=== PATIENT | male | born 1960 | race Hispanic/Latino ===

== ENCOUNTER 2019-01-03 12:42 | Emergency (ER) | payer SELFPAY ==
[2019-01-03] MEDS ORDERED: Ketorolac Tromethamine 30 MG/ML VIAL ONE (13:12)
[2019-01-03] MEDS ORDERED: Ibuprofen 800 MG TAB ONE (13:17)
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
== END 2019-01-03 15:14 | disposition home or self-care (01) ==
LOC: NAV ERS 12:42
DX: M54.2 Cervicalgia (principal); E03.9 Hypothyroidism, unspecified; F17.210 Nicotine dependence, cigarettes, uncomplicated; Z79.899 Other long term (current) drug therapy; V89.2XXA Person injured in unspecified motor-vehicle accident, traffic, initial encounter
CPT/HCPCS: 72125; 72128; J1885

== ENCOUNTER 2024-09-17 12:01 | Emergency (ER) | payer SELFPAY ==
[2024-09-17] MEDS ORDERED: Lorazepam 0.5 MG TAB ONE (12:49)
[2024-09-17] MEDS ORDERED: Ondansetron ODT 4 MG TAB ONE (12:50)
[2024-09-17] MEDS ORDERED: HYDROcodone/Acetaminophen 5/325 mg Tablet ONE (13:15)
[2024-09-17] MEDS ORDERED: Morphine 4 MG/ML VIAL ONE (14:17)
[2024-09-17] MEDS ORDERED: Promethazine HCl 25 MG/ML VIAL ONE (14:17)
[2024-09-17] MEDS ORDERED: Sodium Chloride 0.9% 1,000 ML ONE (14:17)
== END 2024-09-17 15:55 | disposition home or self-care (01) ==
LOC: NAV ERS 12:01
DX: T63.311A Toxic effect of venom of black widow spider, accidental (unintentional), initial encounter (principal); R11.2 Nausea with vomiting, unspecified; F17.290 Nicotine dependence, other tobacco product, uncomplicated
CPT/HCPCS: 96361; 96374; 96375; J2272; J2550; J7030; Q0162